=== PATIENT | male | born 1975 | race Caucasian/White ===

== ENCOUNTER 2021-12-04 17:10 | Outpatient (CLI) | payer OTHER, SELFPAY ==
[2021-12-04 21:54] LABS: Albumin* 4.9 g/dL (3.3-5.0); Chloride* 100 mmol/L (96-114)
[2021-12-04 21:55] LABS: Potassium* 3.5 mmol/L (3.6-5.1); Sodium* 139 mmol/L (135-149)
[2021-12-04 21:57] LABS: Aspartate Amino Transferase* 51 U/L (12-35); Bilirubin Direct* 0.3 mg/dL (0.0-0.5); Bilirubin Total* 0.9 mg/dL (0.1-1.5); Carbon Dioxide* 27 mmol/L (20-32); Cholesterol* 228 mg/dL (90-199); Estimated Glomerular Filt Rate 94 ml/min; Total Protein* 8.4 g/dL (6.0-8.3)
[2021-12-04 21:58] LABS: Alanine Aminotransferase* 73 U/L (4-50); Alkaline Phosphatase* 68 U/L (40-150); Blood Urea Nitrogen* 15 mg/dL (5-24); Calcium* 9.9 mg/dL (8.4-10.6); Glucose* 84 mg/dL (60-115); HDL Cholesterol* 54 mg/dL (>=40); LDL Cholesterol Calculated 138 mg/dL (<100); Triglycerides* 180 mg/dL (40-149)
== END 2021-12-04 17:11 | disposition home or self-care (01) ==
PROVIDERS: PCP Family Medicine; Visit Provider Emergency Medicine
DX: Z00.00 Encounter for general adult medical examination without abnormal findings (principal); R74.01 Elevation of levels of liver transaminase levels; I10 Essential (primary) hypertension; E78.5 Hyperlipidemia, unspecified
CPT/HCPCS: 80048; 80061; 80076

== ENCOUNTER 2022-10-08 13:05 | Outpatient (CLI) | payer OTHER, SELFPAY | END 2022-10-08 13:06 | disposition home or self-care (01) | LOC: NFLDREF 10-09 11:36 | PROVIDERS: PCP Family Medicine; Referring Provider Family Medicine; Visit Provider Family Medicine | DX: Z00.00 Encounter for general adult medical examination without abnormal findings (principal); R79.89 Other specified abnormal findings of blood chemistry; E78.5 Hyperlipidemia, unspecified; R74.01 Elevation of levels of liver transaminase levels; I10 Essential (primary) hypertension; E66.9 Obesity, unspecified; Z13.1 Encounter for screening for diabetes mellitus | CPT/HCPCS: 80048; 80061; 82043; 82570; 84270; 84402; 84403 ==

== ENCOUNTER 2022-10-11 08:36 | Outpatient (CLI) | payer OTHER, SELFPAY | END 2022-10-11 08:37 | disposition home or self-care (01) | LOC: NFLDREF 10-12 08:47 | PROVIDERS: PCP Family Medicine; Referring Provider Family Medicine; Visit Provider Family Medicine | DX: Z00.00 Encounter for general adult medical examination without abnormal findings (principal); R74.01 Elevation of levels of liver transaminase levels; I10 Essential (primary) hypertension; J32.9 Chronic sinusitis, unspecified; J45.40 Moderate persistent asthma, uncomplicated; E78.5 Hyperlipidemia, unspecified; R79.89 Other specified abnormal findings of blood chemistry; E66.9 Obesity, unspecified; L30.9 Dermatitis, unspecified; L98.9 Disorder of the skin and subcutaneous tissue, unspecified; Z87.898 Personal history of other specified conditions; Z13.1 Encounter for screening for diabetes mellitus | CPT/HCPCS: 80076; 84153 ==

== ENCOUNTER 2023-07-24 15:33 | Outpatient (CLI) | payer OTHER, SELFPAY | END 2023-07-24 15:34 | disposition home or self-care (01) | PROVIDERS: PCP Family Medicine; Visit Provider Family Medicine | DX: L08.9 Local infection of the skin and subcutaneous tissue, unspecified (principal); T14.8XXA Other injury of unspecified body region, initial encounter | CPT/HCPCS: 87070; 87186 ==

== ENCOUNTER 2023-11-21 07:58 | Outpatient (CLI) | payer OTHER, SELFPAY | END 2023-11-21 07:59 | disposition home or self-care (01) | LOC: NFLDREF 11-27 05:35 | PROVIDERS: PCP Family Medicine; Referring Provider Family Medicine; Visit Provider Family Medicine | DX: Z00.00 Encounter for general adult medical examination without abnormal findings (principal); Z13.1 Encounter for screening for diabetes mellitus; Z13.6 Encounter for screening for cardiovascular disorders | CPT/HCPCS: 80053; 80061 ==

== ENCOUNTER 2024-02-25 08:01 | Outpatient (CLI) | payer OTHER, SELFPAY | END 2024-02-25 08:02 | disposition home or self-care (01) | LOC: NFLDREF 02-26 10:05 | PROVIDERS: PCP Family Medicine; Referring Provider Family Medicine; Visit Provider Family Medicine | DX: I10 Essential (primary) hypertension (principal); R79.89 Other specified abnormal findings of blood chemistry; R53.83 Other fatigue; Z87.898 Personal history of other specified conditions; Z12.5 Encounter for screening for malignant neoplasm of prostate | CPT/HCPCS: 80061; 84270; 84402; 84403; G0103 ==

== ENCOUNTER 2024-06-04 08:44 | Outpatient (CLI) | payer OTHER, SELFPAY | END 2024-06-04 08:45 | disposition home or self-care (01) | LOC: NFLDREF 06-06 00:06 | PROVIDERS: PCP Family Medicine; Referring Provider Family Medicine; Visit Provider Family Medicine | DX: R79.89 Other specified abnormal findings of blood chemistry (principal); R53.83 Other fatigue | CPT/HCPCS: 80076; 84270; 84402; 84403 ==

== ENCOUNTER 2024-12-06 10:47 | Outpatient (CLI) | payer OTHER, SELFPAY | END 2024-12-06 10:48 | disposition home or self-care (01) | PROVIDERS: PCP Family Medicine; Visit Provider Family Medicine | DX: E78.5 Hyperlipidemia, unspecified (principal); I10 Essential (primary) hypertension | CPT/HCPCS: 80048; 80061 ==